=== PATIENT | female | born 1955 | race Caucasian/White ===

== ENCOUNTER 2018-01-06 09:51 | Emergency (ER) | payer OTHER, SELFPAY ==
[2018-01-06 09:58] VITALS: PULSE 88; RESP 16; O2SAT 98; BMI 38.7
[2018-01-06 11:08] VITALS: BP 148/77; PULSE 92; RESP 20; O2SAT 97
[2018-01-06 11:16] LABS: Bacteria Urine Occasional (0-1); RBC Urine 30-100/HPF (0-5/HPF); Squamous Epithelial Cell Urine 0-1 /HPF; WBC Urine 0-1/HPF (0-5/HPF)
[2018-01-06 11:17] LABS: Culture Indicated Urine Specimen Cultured
--- NOTE | 2018-01-06 11:46 | DI.CT.S_ITS ---
PROCEDURE: CT LUMBAR SPINE WO CON INDICATIONS: worsenign left sciatic pain TECHNIQUE: Noncontrast 3 mm thick sections acquired from the T12 level to the sacrum. Sagittal and coronal reformats were constructed. For radiation dose reduction, the following was used: automated exposure control. COMPARISON: None. FINDINGS: Image quality: Excellent. Bones: There is normal bony alignment except for a slight degree of convex leftward scoliosis centered at the L2-L3 disc level, and also slight anterolisthesis grade 1 of L4 on L5.. No acute vertebral body compression fractures. No suspicious lytic or blastic bony lesions. Central spinal caliber is of normal overall caliber. No pars defects. There is moderately severe degenerative disc disease with a posterior broad-based disc bulge at L2-L3, with facet osteoarthrosis. Below this level moderate to moderately severe facet osteoarthritis is present also, at each intervertebral disc level, with likelihood of multilevel spinal and foraminal stenosis. This is most prominent at L4-5 associated with the subluxation present. Soft tissues: No retroperitoneal masses or hematomas. Note is made of scattered small nonobstructive renal calculi bilaterally ranging from 1-5 mm. Visualized aorta is normal in caliber. IMPRESSION: No trauma found, no infections suspected, MR scanning may be warranted for more accurate assessment of spinal and foraminal stenosis. By noncontrast CT scanning as source of acute onset worsening left sciatic pain is not found. The most prominent areas of degenerative spinal and foraminal stenosis as indicated above this at the L2-3 level and the L4-L5 level. Scattered bilateral small nonobstructive renal collecting system calculi are incidentally noted. Dictated by: Duran Mendez M.D. on 01/06/2018 at 12:47 Approved by: Duran Mendez M.D. on 01/06/2018 at 12:51
[2018-01-06] MEDS: HYDROMORPHONE 2 MG INJ 1 MG SUBCUT (11:52)
--- NOTE | 2018-01-06 11:57 | ED.BACK ---
HPI - Back Pain/Injury General Chief Complaint: Back Pain/Injury Stated Complaint: lower back pain Time Seen by Provider: 01/06/18 11:10 Source: patient Mode of arrival: ambulatory Limitations: no limitations History of Present Illness HPI Narrative: Patient is a 62-year-old female presents acute on chronic back pain with left leg weakness numbness tingling. She was seen evaluated at [facility] 3 days ago. She had CT at that time. According to those records she is a chronic narcotic dependent back pain with occasional sciatica and does have a pain contract. She was not given narcotics during that ER visit she was given Toradol and Ativan. She was then given Zanaflex as a prescription for home. He says it is not working she does have an appointment tomorrow but does not feel like she can make it. She denies any urinary incontinence. Related Data Home Medications Medication Instructions Recorded Confirmed cephalexin 500 mg PO QIDX7 01/06/18 01/06/18 clonazepam 0.5 mg PO BID PRN 01/06/18 01/06/18 duloxetine 60 mg PO DAILY 01/06/18 01/06/18 ibuprofen 800 mg PO PRN PRN 01/06/18 01/06/18 meloxicam 15 mg PO BEDTIME 01/06/18 01/06/18 oxycodone 5 - 10 mg PO Q4H PRN 01/06/18 01/06/18 prednisone 50 mg PO DAILYX5 01/06/18 01/06/18 ropinirole 1 mg PO QPM 01/06/18 01/06/18 tizanidine 4 mg PO BEDTIME MDD 12 MG 01/06/18 01/06/18 trazodone 100 mg PO BEDTIME 01/06/18 01/06/18 trospium 20 mg PO BID 01/06/18 01/06/18 Allergies Allergy/AdvReac Type Severity Reaction Status Date / Time iodine Allergy Verified 01/06/18 09:57 Sulfa (Sulfonamide Allergy Verified 01/06/18 09:57 Antibiotics) Review of Systems Review of Systems GENERAL: Denies chills, fatigue, malaise, fever, sweats, travel HEENT: Denies sinus pain, ear pain, sore throat, difficulty swallowing, neck pain RESPIRATORY: Denies dyspnea, cough, wheezing, hemoptysis, sputum. CARDIOVASCULAR: Denies chest pain, palpitations, orthopnea, edema GASTROINTESTINAL: Denies nausea, vomiting, abdominal pain, diarrhea, constipation, melena. : Denies dysuria, frequency, incontinence, hematuria, urinary retention, flank pain. MUSCULOSKELETAL: Back pain, see HPI SKIN: No rash, no erythema, no pruritus NEUROLOGIC: Denies weakness, dizziness, headache, numbness, change in speech, confusion PSYCHIATRIC: No concerning psychosocial issues. 12 point review of systems is negative except for those stated above and HPI PFSH Medical History Chronic back pain (Acute) Social History Smoking Status: Never smoker alcohol intake: never substance use type: does not use Exam Initial Vital Signs Initial Vital Signs: Vital Signs Pulse Rate 88 01/06/18 09:58 Respiratory Rate 16 01/06/18 09:58 Pulse Oximetry 98 01/06/18 09:58 GENERAL: Overweight female tearful sitting in chair HEENT: Head atraumatic,EOMI, pupils reactive, CARDIOVASCULAR: Regular rate and rhythm without murmurs, rubs or gallops. RESPIRATORY: Breath sounds equal bilaterally, no wheezes rales or rhonchi. ABDOMEN: Soft, nontender. Normoactive bowel sounds all 4 quadrants. No guarding or rebound. BACK: No midline tenderness left lumbar more tender extremities. Inability to stand with a walker pain is significantly increased EXTREMITIES: Normal range of motion, no clubbing or edema. Neurovascularly intact NEUROLOGICAL: Alert and oriented x4.Normal gait and speech. Cranial nerves II through XII grossly intact. SKIN: Warm, dry, no laceration, no petechiae, no rashes or lesions. Course Orders Ordered: Discontinued Medications Hydromorphone HCl (Dilaudid) 1 mg SUBCUT Q4H PRN PRN Reason: Pain, Severe (7-10) Last Admin: 01/06/18 11:52 Dose: 1 mg Ketorolac Tromethamine (Toradol) 60 mg IM NOW ONE Stop: 01/06/18 13:46 Last Admin: 01/06/18 13:40 Dose: 60 mg Vital Signs - 8 hr 01/06/18 09:58 01/06/18 11:08 Pulse Rate 88 92 H Respiratory Rate 16 20 Blood Pressure [Left Arm] 148/77 H Pulse Oximetry 98 97 MDM - Back Pain/Injury Lab Data Attestation: I reviewed the patient's lab results. Lab Results 01/06/18 Range/Units 10:35 Urine RBC 30-100/hpf H (0-5/HPF) Urine WBC 0-1/hpf (0-5/HPF) Ur Squamous Epith Cells 0-1 /hpf Urine Bacteria Occasional (0-1) (None) Urine Yeast 10-30/hpf H (None) Ur Culture Indicated? Specimen cultured Micro UA Comment Not Reportable Urine Dip Bedside Urine Glucose Negative Bedside Urine Bilirubin - Negative Bedside Urine Ketone - Negative Urine Specific [place] 1.025 Bedside Urine Occult Blood +++ Bedside Urine pH 6.0 Bedside Urine Protein + 30 Bedside Urine Urobilinogen - Negative Bedside Urine Nitrite - Negative Bedside Urine Leukocytes - Negative Esterase Imaging Data CT Lumbar: Radiologist's impression: PROCEDURE: CT LUMBAR SPINE WO CON INDICATIONS: worsenign left sciatic pain TECHNIQUE: Noncontrast 3 mm thick sections acquired from the T12 level to the sacrum. Sagittal and coronal reformats were constructed. For radiation dose reduction, the following was used: automated exposure control. COMPARISON: None. FINDINGS: Image quality: Excellent. Bones: There is normal bony alignment except for a slight degree of convex leftward scoliosis centered at the L2-L3 disc level, and also slight anterolisthesis grade 1 of L4 on L5.. No acute vertebral body compression fractures. No suspicious lytic or blastic bony lesions. Central spinal caliber is of normal overall caliber. No pars defects. There is moderately severe degenerative disc disease with a posterior broad-based disc bulge at L2-L3, with facet osteoarthrosis. Below this level moderate to moderately severe facet osteoarthritis is present also, at each intervertebral disc level, with likelihood of multilevel spinal and foraminal stenosis. This is most prominent at L4-5 associated with the subluxation present. Soft tissues: No retroperitoneal masses or hematomas. Note is made of scattered small nonobstructive renal calculi bilaterally ranging from 1-5 mm. Visualized aorta is normal in caliber. IMPRESSION: No trauma found, no infections suspected, MR scanning may be warranted for more accurate assessment of spinal and foraminal stenosis. By noncontrast CT scanning as source of acute onset worsening left sciatic pain is not found. The most prominent areas of degenerative spinal and foraminal stenosis as indicated above this at the L2-3 level and the L4-L5 level. Scattered bilateral small nonobstructive renal collecting system calculi are incidentally noted. Dictated by: Duran Mendez M.D. on 01/06/2018 at 12:47 MDM Narrative Medical decision making narrative: Patient's pain has improved after Dilaudid. On or after she received Dilaudid did a read her records and according to [facility] records she is not get narcotics however I do not have any [facility] report for her. She is on Zanaflex but only taking it once a day. It says that you may take it up to 3 times a day encouraged her to do this. She is requesting for more pain medicine before discharge she is getting 1 shot Toradol. She has a ride home Discharge Plan Departure Patient Disposition: Home Clinical Impression: Lumbar radiculopathy Discharge Date/Time: 01/06/18 14:10 Interventions: ED Discharge Assessment Last Done: 01/06/18 14:08 Instructions: DI for Back Pain With Sciatica Activity Restrictions/Additional Instructions: *You have been diagnosed with acute on chronic back pain *What to do: May need physical therapy, see her pain management doctor *Continue to take medications as directed Zanaflex 4 mg as every 8 hr as needed for muscle spasm *Follow up with your primary care provider in 2-3 days *Return to ER if you should have the urinary incontinence, leg weakness, inability to walk or any new, worsening or concerning symptoms Prescriptions: No Action prednisone 10 mg tablet 50 mg PO DAILYX5 RF: 0 tizanidine 4 mg tablet 4 mg PO BEDTIME MDD 12 MG RF: 0 meloxicam 15 mg tablet 15 mg PO BEDTIME RF: 0 clonazepam 0.5 mg tablet 0.5 mg PO BID PRN (Reason: Anxiety) RF: 0 trazodone 100 mg tablet 100 mg PO BEDTIME RF: 0 cephalexin 500 mg capsule 500 mg PO QIDX7 RF: 0 ropinirole 0.5 mg tablet 1 mg PO QPM RF: 0 oxycodone 5 mg tablet 5 - 10 mg PO Q4H PRN (Reason: PAIN) RF: 0 trospium 20 mg tablet 20 mg PO BID RF: 0 duloxetine 60 mg capsule,delayed release(DR/EC) 60 mg PO DAILY RF: 0 ibuprofen 800 mg Tablet 800 mg PO PRN PRN (Reason: PAIN) RF: 0 Referrals: Nika Rodríguez ARNP [Primary Care Provider] -
[2018-01-06 13:20] VITALS: BP 125/67; PULSE 94; RESP 16; O2SAT 94
[2018-01-06] MEDS: KETOROLAC 60 MG/2 ML VIAL IM (13:40)
[2018-01-06 14:08] VITALS: BP 150/87; PULSE 94; RESP 18; O2SAT 95
== END 2018-01-06 14:10 | disposition home or self-care (01) ==
PROVIDERS: Emergency Provider Emergency Medicine; PCP Nurse Practitioner Family
DX: M54.16 Radiculopathy, lumbar region (principal)
CPT/HCPCS: 72131; 81003; 81015; 87086; 96372; 99283; 99284; J1170; J1885

== ENCOUNTER → 2018-01-14 08:54 | Outpatient (CLI) | payer OTHER, SELFPAY ==
--- NOTE | 2018-01-14 | DI.MRI.S_ITS ---
PROCEDURE: MR LUMBAR SPINE WO CON INDICATIONS: Spondylosis without myelopathy or radiculopathy, l TECHNIQUE: Noncontrast sagittal T1 spin echo and T2 fast echo, sagittal STIR, axial T1 and T2 fast spin echo through the lumbar spine. In cases with scoliosis, additional coronal T2 fast spin echo may be performed. COMPARISON: [facility], CT, CT LUMBAR SPINE WO CON, 01/06/2018, 12:23. FINDINGS: Image quality: Excellent. Alignment and Curvature: There is trace retrolisthesis of L2 on L3, L3 on L4, trace anterolisthesis of L4 on L5, unchanged. Bone Marrow: Marrow is of normal overall signal. A Schmorl's node is noted along the superior endplate of L3 as well as a smaller focus along the inferior endplate of L2. There is minimal surrounding hyperintense STIR signal, suggestive of reactive change. No acute vertebral body compression fractures. Spinal Cord: Conus medullaris terminates at the L1 level. Visualized cord demonstrates normal signal and size. Paraspinous Soft Tissues: No paravertebral masses. 3 mm right renal cyst. Discs: Severe desiccation is present at L2-3, L3-4, moderate L1-L2, L4-L5, mild to moderate L1-2. L1-L2: Mild disc bulge with minimal spinal stenosis. Mild epidural lipomatosis. No foraminal narrowing. Mild facet and ligamentum flavum hypertrophy. L2-L3: Mild disc bulge with moderate spinal stenosis. There is moderate epidural lipomatosis. Facet and ligamentum flavum hypertrophy are present. Minimal to mild left foraminal narrowing. L3-L4: Mild disc bulge with moderate to severe spinal stenosis. Moderate epidural lipomatosis is present with facet and ligamentum flavum hypertrophy. Moderate bilateral foraminal narrowing. L4-L5: Mild disc bulge with small superimposed protrusion/extrusion in the left posterior paracentral region with compromise of the left lateral recess. There is moderate spinal stenosis with mild to moderate epidural lipomatosis. Minimal bilateral foraminal narrowing. L5-S1: Mild disc bulge including a small right foraminal component. There is moderate right and minimal to mild left foraminal narrowing with facet hypertrophy. IMPRESSION: 1. Multilevel degenerative changes including disc bulges and small superimposed protrusion/extrusion at L4-5. 2. Multilevel spinal stenosis moderate to severe at L2-3 and L3-4 secondary to epidural lipomatosis with contributing fracture of disc bulge and facet/ligament flavum arthropathy. 3. Moderate bilateral foraminal narrowing at L3-4 and L5-S1 predominantly secondary to facet arthropathy. Dictated by: Minna Navarrete M.D. on 01/14/2018 at 13:41 Approved by: Minna Navarrete M.D. on 01/14/2018 at 14:04
== END ==
PROVIDERS: PCP Nurse Practitioner Family; Visit Provider Nurse Practitioner Family
DX: M47.816 Spondylosis without myelopathy or radiculopathy, lumbar region (principal); M47.817 Spondylosis without myelopathy or radiculopathy, lumbosacral region; M51.36 Other intervertebral disc degeneration, lumbar region; M51.37 Other intervertebral disc degeneration, lumbosacral region; M48.061 Spinal stenosis, lumbar region without neurogenic claudication; M48.07 Spinal stenosis, lumbosacral region
CPT/HCPCS: 72148